=== PATIENT | male | born 1945 | race Caucasian/White ===

== ENCOUNTER → 2017-06-11 | Day surgery (SDC) | payer MEDICARE ==
[~2017-06-11] VITALS: Ht 172.7 cm; Wt 109.8 kg
[~2017-06-11] MED LIST: AMLO10TA2 PO; CARV-39 PO; CELE200C PO; DULO30CA2 PO; FLUT12HF3 IH; GABA800T2 PO; LIDOCAINE 1%, 20ML ONE; LISI40TA PO; METH750T2 PO; METH750T87 PO; OXYC-307 PO; SODIUM CHLORIDE 0.9% 1,000 ML IV SCH; TAMS0.4C2 PO
[2017-06-11 13:03] VITALS: BP 121/72
== END ==
LOC: OUT 12:30
PROVIDERS: ATTEND Neurological Surgery
DX: Z02.9 Encounter for administrative examinations, unspecified (principal)
CPT/HCPCS: J3490

== ENCOUNTER 2017-06-26 07:33 | Day surgery (SDC) | payer MEDICARE ==
[~2017-06-26] VITALS: Ht 172.7 cm; Wt 107.7 kg
[~2017-06-26 07:33] MED LIST changes: -LIDOCAINE 1%, 20ML ONE; -SODIUM CHLORIDE 0.9% 1,000 ML IV SCH
[2017-06-26] MEDS ORDERED: ASPI-496 PO (07:55)
[2017-06-26] MEDS ORDERED: ATOR40TA78 PO (07:55)
[2017-06-26] MEDS ORDERED: TRAZ100T15 PO (07:55)
[2017-06-26] MEDS ORDERED: FINA5TAB4 PO (07:55)
[2017-06-26 08:05] VITALS: BP 131/83
== END 2017-06-26 09:38 | disposition home or self-care (01) ==
LOC: OUT 07:33
PROVIDERS: ATTEND Neurological Surgery
DX: Z02.9 Encounter for administrative examinations, unspecified (principal)